=== PATIENT | male | born 2000 | race Caucasian/White ===

== ENCOUNTER 2024-05-03 23:30 | Emergency (ER) | payer SELFPAY ==
[~2024-05-03] VITALS: Ht 172.7 cm; Wt 104.3 kg
[2024-05-03 23:53] VITALS: BP 120/74; PULSE 78; RESP 18; TEMP 98; O2SAT 100
[2024-05-04 00:29] LABS: APPEARANCE,URINE CLEAR (CLEAR); BILIRUBIN,URINE NEGATIVE (NEGATIVE); BLOOD, URINE NEGATIVE (NEGATIVE); COLOR,URINE YELLOW (YELLOW); LEUKOCYTE ESTERASE ,URINE NEGATIVE (NEGATIVE); NITRITE, URINE NEGATIVE (NEGATIVE); PROTEIN,URINE NEGATIVE (NEGATIVE); UGLUCOSE NEGATIVE (NEGATIVE)
[2024-05-04] MEDS ORDERED: CEPH-588 PO (02:56)
[2024-05-04] MEDS ORDERED: IBUP-2213 PO (02:56)
== END 2024-05-04 03:40 | disposition home or self-care (01) ==
LOC: MED 23:30
DX: S31.21XA Laceration without foreign body of penis, initial encounter (principal); F17.200 Nicotine dependence, unspecified, uncomplicated; Z72.89 Other problems related to lifestyle; W26.8XXA Contact with other sharp object(s), not elsewhere classified, initial encounter; Y93.89 Activity, other specified; Y92.89 Other specified places as the place of occurrence of the external cause; Y99.8 Other external cause status
CPT/HCPCS: 81003; 99283